=== PATIENT | female | born 1985 | race Caucasian/White ===

== ENCOUNTER 2017-10-15 09:44 | Emergency (ER) | payer OTHER ==
--- NOTE | 2017-10-15 10:17 | ED Physician Documentation ---
General Adult - HISTORIAN Historian: patient - HPI Chief Complaint: Female Urogenital Problems Additional Information: Patient states that about one month ago she was using a shower curtain hattie, inserting into her vaginal for personal pleasure. She did not know that any piece of the hattie came lose. Patient denies that she has had an abnormal discharge. She has had a normal menstrual period. This AM while having intercourse her partner noted a FB in her vaginal area. Timing: still present - ROS CONST: denies: fever, chills - PAST HX Past History: none Surgeries/Procedures: none Immunizations: referred to PCP Allergies/Adverse Reactions: Allergies Allergy/AdvReac Type Severity Reaction Status Date / Time No Known Allergies Allergy Verified 03/03/13 17:21 Home Medications: Ambulatory Orders Medication Instructions Recorded NK [NK] 03/03/13 - SOCIAL HX Smoking History: non-smoker Alcohol Use: none Drug Use: none - FAMILY HX Family History: No - VITAL SIGNS Vital Signs: Vital Signs Temp Pulse Resp BP Pulse Ox 118/70 03/03/13 17:24 - REVIEWED ASSESSMENTS Nursing Assessment Reviewed: Yes Vitals Reviewed: Yes General Adult Physical Exam - PHYSICAL EXAM GENERAL APPEARANCE: no distress RESPIRATORY: no resp distress, chest non-tender, breath sounds normal. No: wheezes, rales, rhonchi CVS: reg rate & rhythm, heart sounds normal, equal pulses, no murmur, no gallop ABDOMEN: soft, no organomegaly, normal bowel sounds, other (morbid obesity) SKIN: warm/dry NEURO: oriented X3, cognition normal Discharge Clincal Impression: Foreign body in vagina Referrals: Primary Doctor,No [Primary Care Provider] - 2 Days Condition: Good Decision to Admit: [id number] Date of Decison to Admit: 10/15/17 Decision Time: 11:48 Physical Exam - Physical Exam Pelvic Exam: no cerv. motion tender, discharge, other (large white FB in vaginal area, several attemps to remove FB unsuccessful. mild slighty blood discharge noted) Neurologic: normal mood/affect
[2017-10-15 11:01] VITALS: BP 160/85
== END 2017-10-15 13:20 | disposition short-term general hospital (02) ==
LOC: ED 09:44
DX: T19.2XXA Foreign body in vulva and vagina, initial encounter (principal); Y92.9 Unspecified place or not applicable; Y93.9 Activity, unspecified; Y99.9 Unspecified external cause status; X58.XXXA Exposure to other specified factors, initial encounter